=== PATIENT | female | born 1930 | race American Indian/Alaskan Native ===

== ENCOUNTER 2021-01-02 08:31 | Emergency (ER) | payer MEDICARE ==
[2021-01-02 08:56] VITALS: BP 115/68
--- NOTE | 2021-01-02 09:18 | Emergency Department Report ---
HPI - General Chief Complaint: Fall Time Seen by Provider: 01/02/21 09:04 - [facility] HPI: [place] 27 The patient is a 89-year-old female present with chief complaint of fall. The patient was sent from [facility] after an unwitnessed ground-level fall. The patient states she remembers falling. Patient denies pain of any type ED Past Medical Hx - Past Medical History Previous Medical History?: Yes Additional medical history: dementia - Surgical History Past Surgical History?: No - Family History Family history: no significant - Social History Smoking Status: Unknown if ever smoked Substance Use Type: None ED Review of Systems ROS: Stated complaint: ARM PAIN/FALL Other details as noted in HPI Constitutional: no symptoms reported Eyes: denies: eye pain ENT: denies: throat pain Respiratory: no symptoms reported Cardiovascular: denies: chest pain Endocrine: no symptoms reported Gastrointestinal: denies: abdominal pain Genitourinary: denies: dysuria Musculoskeletal: denies: back pain Neurological: denies: headache Physical Exam - Physical Exam Vital Signs: Vital Signs 01/02/21 08:40 Temperature 97.7 F Pulse Rate 84 Respiratory 16 Rate Blood Pressure 115/68 O2 Sat by Pulse 97 Oximetry Physical Exam: GENERAL: The patient is well-developed well-nourished female lying on stretcher not appearing to be in acute distress. [] HEENT: Normocephalic. Atraumatic. Extraocular motions are intact. Patient has moist mucous membranes. NECK: Supple. No axial step-offs. CHEST/LUNGS: Clear to auscultation. There is no respiratory distress noted. HEART/CARDIOVASCULAR: Regular. There is no tachycardia. There is no gallop rub or murmur. ABDOMEN: Abdomen is soft, nontender. Patient has normal bowel sounds. There is no abdominal distention. SKIN: There is no rash. There is no edema. There is no diaphoresis. NEURO: The patient is awake and alert. The patient is cooperative. The patient has no focal neurologic deficits. The patient has normal speech. Cranial nerves II through XII grossly intact. MUSCULOSKELETAL: The patient is able to flex both lower extremities at the knees and hips without difficulty. ED Course Vital Signs 01/02/21 08:40 Temperature 97.7 F Pulse Rate 84 Respiratory 16 Rate Blood Pressure 115/68 O2 Sat by Pulse 97 Oximetry ED Medical Decision Making - Radiology Data Radiology results: report reviewed (CT head, CT cervical spine), image reviewed (CT head, CT cervical spine) [facility] [address] [address] [place] [address] Cat Scan Report Signed Patient: FRANCISCO DÍAZ MR#: [id number] 71 : 1930 Acct:[id number] Age/Sex: 89 / F ADM Date: 01/02/21 Loc: ED Attending Dr: Ordering Physician: DEJUAN RAMOS MD Date of Service: 01/02/21 Procedure(s): CT head/brain wo con Accession Number(s): [id number] cc: DEJUAN RAMOS MD CT cervical spine wo con, CT head/brain wo con INDICATION: Fall. TECHNIQUE: CT head and cervical spine without contrast. All CT scans at this location are performed using CT dose reduction for ALARA by means of automated exposure control. COMPARISON: None. FINDINGS: HEAD: Intracranial: Mariee-white matter differentiation is maintained. No intracranial hemorrhage. No extra axial collection.. No hydrocephalus. No herniation. Sinuses: Minimal mucosal thickening seen within the left maxillary sinus and left ethmoid air cells. Overall the paranasal sinuses and mastoid air cells are centrally clear.. Orbits: Globes are intact Calvarium: No acute fracture. CERVICAL: Alignment: 2 mm degenerative retrolisthesis of C3 on C4. No traumatic listhesis. Vertebrae: No fracture. Vertebral body heights are preserved. C1 and C2 are congruent. Atlantooccipital joint is maintained. Spondylolysis: Diffuse spondylosis. There is significant lateral atlantoaxial degenerative changes resulting in moderate spinal canal stenosis. There is also moderate to spinal canal stenosis at C4- C5 and C5-C6. Multilevel facet arthropathy and high-grade osseous foraminal narrowing. Soft tissues: No prevertebral soft tissue thickening. Additional findings: No significant additional findings. IMPRESSION: 1. No acute intracranial abnormality. 2.No cervical spine fracture. Signer Name: Jarocho Ascencio MD Signed: 01/02/2021 9:53 AM Workstation Name: [id number] Transcribed By: SUNIL Dictated By: Jarocho Ascencio MD Electronically Authenticated By: Jarocho Ascencio MD Signed Date/Time: 01/02/21952 DD/ 9 TD/TT: Print Cancel [facility] [address] [address] [place] [address] Cat Scan Report Signed Patient: FRANCISCO DÍAZ MR#: [id number] [birth year] : 1930 Acct:[id number] Age/Sex: 89 / F ADM Date: 01/02/21 Loc: ED Attending Dr: Ordering Physician: DEJUAN RAMOS MD Date of Service: 01/02/21 Procedure(s): CT cervical spine wo con Accession Number(s): [id number] cc: DEJUAN RAMOS MD CT cervical spine wo con, CT head/brain wo con INDICATION: Fall. TECHNIQUE: CT head and cervical spine without contrast. All CT scans at this location are performed using CT dose reduction for ALARA by means of automated exposure control. COMPARISON: None. FINDINGS: HEAD: Intracranial: Mariee-white matter differentiation is maintained. No intracranial hemorrhage. No extra axial collection.. No hydrocephalus. No herniation. Sinuses: Minimal mucosal thickening seen within the left maxillary sinus and left ethmoid air cells. Overall the paranasal sinuses and mastoid air cells are centrally clear.. Orbits: Globes are intact Calvarium: No acute fracture. CERVICAL: Alignment: 2 mm degenerative retrolisthesis of C3 on C4. No traumatic listhesis. Vertebrae: No fracture. Vertebral body heights are preserved. C1 and C2 are congruent. Atlantooccipital joint is maintained. Spondylolysis: Diffuse spondylosis. There is significant lateral atlantoaxial degenerative changes resulting in moderate s morelia canal stenosis. There is also moderate to spinal canal stenosis at C4- C5 and C5-C6. Multilevel facet arthropathy and high-grade osseous foraminal narrowing. Soft tissues: No prevertebral soft tissue thickening. Additional findings: No significant additional findings. IMPRESSION: 1. No acute intracranial abnormality. 2.No cervical spine fracture. Signer Name: Jarocho Ascencio MD Signed: 01/02/2021 9:53 AM Workstation Name: [id number] Transcribed By: SUNIL Dictated By: Jarocho Ascencio MD Electronically Authenticated By: Jarocho Ascencio MD Signed Date/Time: 01/02/21952 DD/ 9 TD/TT: - Differential Diagnosis Close head injury, cervical fracture, intracranial hemorrhage Critical care attestation.: If time is entered above; I have spent that time in minutes in the direct care of this critically ill patient, excluding procedure time. ED Disposition Clinical Impression: Fall Disposition: DC/TX-70 ANOTHER TYPE HLTHCARE Is pt being admited?: No Does the pt Need Aspirin: No Condition: Stable Instructions: Fall Prevention in the Home, Adult, Fall Prevention in Hospitals, Adult Additional Instructions: Return to the emergency department should you develop worsening symptoms, inability to tolerate food or liquids, high fever or any other concerns Referrals: MAXI LOPEZ MD [Other] - 3-5 Days Time of Disposition: 10:34
--- NOTE | 2021-01-02 09:58 | Cat Scan Report ---
CT cervical spine wo con, CT head/brain wo con INDICATION: Fall. TECHNIQUE: CT head and cervical spine without contrast. All CT scans at this location are performed u sing CT dose reduction for ALARA by means of automated exposure control. COMPARISON: None. FINDINGS: HEAD: Intracranial: Mariee-white matter differentiation is maintained. No intracranial hemorrhage. No extra a xial collection.. No hydrocephalus. No herniation. Sinuses: Minimal mucosal thickening seen within the left maxillary sinus and left ethmoid air cells. Overall the paranasal sinuses and mastoid air cells are centrally clear.. Orbits: Globes are intact Calvarium: No acute fracture. CERVICAL: Alignment: 2 mm degenerative retrolisthesis of C3 on C4. No traumatic listhesis. Vertebrae: No fracture. Vertebral body heights are preserved. C1 and C2 are congruent. Atlantooccipi bhavya joint is maintained. Spondylolysis: Diffuse spondylosis. There is significant lateral atlantoaxial degenerative changes re sulting in moderate spinal canal stenosis. There is also moderate to spinal canal stenosis at C4-C5 a nd C5-C6. Multilevel facet arthropathy and high-grade osseous foraminal narrowing. Soft tissues: No prevertebral soft tissue thickening. Additional findings: No significant additional findings. IMPRESSION: 1. No acute intracranial abnormality. 2.No cervical spine fracture. Signer Name: Jarocho Ascencio MD Signed: 01/02/2021 9:53 AM Workstation Name: [id number]
== END 2021-01-02 12:48 | disposition other institution (70) ==
LOC: ED 08:31
DX: F03.90 Unspecified dementia, unspecified severity, without behavioral disturbance, psychotic disturbance, mood disturbance, and anxiety (principal); W18.39XA Other fall on same level, initial encounter; Y93.89 Activity, other specified; Y92.89 Other specified places as the place of occurrence of the external cause; Y99.8 Other external cause status
CPT/HCPCS: 70450; 72125; 99284; 99285

== ENCOUNTER 2021-01-13 00:37 | Emergency (ER) | payer MEDICARE ==
--- NOTE | 2021-01-13 02:05 | Emergency Department Report ---
HPI - General Chief Complaint: Fall Time Seen by Provider: 01/13/21 01:11 - HPI HPI: This is an 89-year-old -Algerian female presents to the emergency department via EMS from her fdc facility with a complaint of an unwitnessed fall. Patient has a history of dementia and is a poor historian. She presents with a small cut above her left eye. She denies hitting her head. The patient was here for an unwitnessed fall a few weeks ago. It does not appear that the patient was given anything or took anything for her symptoms prior to presentation. ED Past Medical Hx - Past Medical History Previous Medical History?: Yes Hx Kidney Stones: Yes Hx Dementia: Yes Additional medical history: dementia - Surgical History Past Surgical History?: No - Social History Smoking Status: Never Smoker Substance Use Type: None ED Review of Systems ROS: Stated complaint: FALL Other details as noted in HPI Comment: Unobtainable due to pts medical conditions Physical Exam - Physical Exam Vital Signs: Vital Signs 01/13/21 00:57 Temperature 98.0 F Pulse Rate 59 L Respiratory 16 Rate Blood Pressure 126/65 O2 Sat by Pulse 100 Oximetry Physical Exam: GENERAL: The patient is well-developed well-nourished. HENT: Normocephalic. Patient has moist mucous membranes. EYES: Extraocular motions are intact. Pupils equal reactive to light bilaterally. NECK: Supple. Trachea is midline. CHEST/LUNGS: Clear to auscultation. There is no respiratory distress noted. HEART/CARDIOVASCULAR: Regular. There is no tachycardia. There is no murmur. ABDOMEN: Abdomen is soft, nontender. Patient has normal bowel sounds. There is no abdominal distention. SKIN: Skin is warm and dry. There is a small abrasion or superficial laceration to the left lateral eyebrow. NEURO: The patient is awake, alert, and cooperative, but confused. AAO x1 to person but not place or time. Normal speech. MUSCULOSKELETAL: There is no tenderness or deformity. BACK: No midline thoracic or lumbar tenderness to palpation. ED Course Vital Signs 01/13/21 00:57 Temperature 98.0 F Pulse Rate 59 L Respiratory 16 Rate Blood Pressure 126/65 O2 Sat by Pulse 100 Oximetry ED Medical Decision Making - Radiology Data Radiology results: report reviewed, image reviewed interpreted by me: Chest x-ray does not show any acute process. There are no pleural effusions, obvious pneumonia and there is no pneumothorax. No significant cardiomegaly. No widened mediastinum. No obvious rib fractures. X-ray of the thoracic and lumbar spine do not show any fracture, subluxation, or any acute process. X-ray of the pelvis does not show any fracture, dislocation, or any acute process. CT imaging of the cervical spine was performed in the axial, sagittal, and coronal projections and bone algorithm in axial projection in the soft tissue algorithm. All CT scans at this location are performed using CT dose reduction for ALARA by means of automated exposure control. FINDINGS: Exam is compared to 01/02/2021 The ring of C1 is normal. The odontoid is normal. There is no evidence of an offset. There is no evidence of a fracture. However, degenerative changes are present with narrowing of the C1 odontoid junction. The spinal canal is well maintained. C2-C3: The spinal canal is well maintained. The neural foramina are normal. The vertebral bodies are normal. The posterior elements are intact. There is no evidence of a fracture. C3-C4: Marked intervertebral disc space narrowing is present with anterior and posterior osteophytes. The spinal canal is well maintained. The neural foramina are normal. The vertebral bodies are normal. The posterior elements are intact. There is no evidence of a fracture.. C4-C5: Marked intervertebral disc space narrowing is present with anterior and posterior osteophytes. Moderate spinal stenosis is present. The neural foramina is markedly narrowed on the left The vertebral bodies are normal. The posterior elements are intact. There is no evidence of a fracture. C5-C6: Marked intervertebral disc space narrowing is present with anterior and posterior osteophytes. The Moderate spinal stenosis present. The neural foramina is markedly narrowed on the left The vertebral bodies are normal. The posterior elements are intact. There is no evidence of a fracture. C6-C7: Marked intervertebral disc space narrowing is present with anterior and posterior osteophytes. The spinal canal is well maintained. The neural foramina are normal. The vertebral bodies are normal. The posterior elements are intact. There is no evidence of a fracture. C7-T1: The spinal canal is well maintained. The neural foramina are normal. The vertebral bodies are normal. The posterior elements are intact. There is no evidence of a fracture. IMPRESSION: No acute traumatic abnormality. Degenerative changes as noted. CT MAXILLOFACIAL WITHOUT CONTRAST INDICATION / CLINICAL INFORMATION: Trauma, LEFT sided orbital laceration.. TECHNIQUE: All CT scans at this location are performed using CT dose reduction for ALARA by means of automated exposure control. COMPARISON: None available. FINDINGS: FACIAL BONES: No fracture or other significant abnormality. PARANASAL SINUSES: No inflammatory changes present left frontal left ethmoid and left maxillary sinuses ORBITS: No significant abnormality. SOFT TISSUES: No significant abnormality. VISUALIZED INTRACRANIAL STRUCTURES: No significant abnormality. ADDITIONAL FINDINGS: None. IMPRESSION: 1. Inflammatory changes left frontal left ethmoid and left maxillary sinus CT HEAD WITHOUT CONTRAST HISTORY: Trauma, LEFT sided orbital laceration. COMPARISON: 01/02/2021 CT TECHNIQUE: CT imaging of the head was performed in the axial, sagittal, and coronal projections and bone algorithm in axial projection in the soft tissue algorithm. All CT scans at this location are performed using CT dose reduction for ALARA by means of automated exposure control. CONTRAST: None. FINDINGS: Cerebral and Cerebellar Hemispheres: Moderate diffuse cerebral atrophy. 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 No evidence of mass or mass effect. No midline shift. No acute hemorrhage. No acute cortical infarction. No extra-axial fluid collection. Ventricles: Normal in size and configuration for age. Osseous Structures: No significant abnormality. Visualized Paranasal Sinuses: Mucosal thickening left ethmoid left maxillary sinuses Additional Findings: None IMPRESSION: 1. No acute intracranial abnormality. Normal changes compared to previous exam - Medical Decision Making This patient presents to the emergency department from her fdc facility after an alleged fall. The patient has dementia and there is no one else with her for collateral information. It is unknown whether this was a witnessed versus unwitnessed fall. Given these facts, the patient had a CT scan of the head, cervical spine, and facial bones that did not show any acute processes. She had x-rays done of the chest, pelvis, thoracic and lumbar spine, that also did not show any acute process. Vital signs have been reassuring throughout her ED course thus far. She will be discharged back to her nursing facility with instructions to follow-up with the primary care physician. Critical Care Time: No Critical care attestation.: If time is entered above; I have spent that time in minutes in the direct care of this critically ill patient, excluding procedure time. ED Disposition Clinical Impression: Fall Qualifiers: Encounter type: initial encounter Qualified Code(s): W19.XXXA - Unspecified fall, initial encounter Facial abrasion Qualifiers: Encounter type: initial encounter Qualified Code(s): S00.81XA - Abrasion of other part of head, initial encounter Dementia Qualifiers: Dementia type: unspecified type Dementia behavioral disturbance: without behavioral disturbance Qualified Code(s): F03.90 - Unspecified dementia without behavioral disturbance Head injury Qualifiers: Encounter type: initial encounter Qualified Code(s): S09.90XA - Unspecified injury of head, initial encounter Disposition: TO HOME OR SELFCARE Is pt being admited?: No Condition: Stable Instructions: Fall Prevention in the Home, Adult, [id number], Head Injury, Adult, Abrasion, [id number] Additional Instructions: Please follow-up with the primary care physician in the next few days. Clean the area of the facial abrasion/laceration with soap and water and then keep it dry. Look out for signs/symptoms of infection such as increased pain, increased swelling, surrounding redness, development of fever, or discharge of pus. Return to the emergency department with any worsening of your symptoms, new or concerning symptoms not addressed during this current emergency department visit, or with any acute distress. Referrals: PRIMARY CARE, [Primary Care Provider] - 2-3 Days Time of Disposition: 03:16
--- NOTE | 2021-01-13 02:57 | Cat Scan Report ---
CT HEAD WITHOUT CONTRAST HISTORY: Trauma, LEFT sided orbital laceration. COMPARISON: 01/02/2021 CT TECHNIQUE: CT imaging of the head was performed in the axial, sagittal, and coronal projections and bone algori thm in axial projection in the soft tissue algorithm. All CT scans at this location are performed using CT dose reduction for ALARA by means of automated e xposure control. CONTRAST: None. FINDINGS: Cerebral and Cerebellar Hemispheres: Moderate diffuse cerebral atrophy. Moderate deep white matter di sease consistent with microangiopathy. No evidence of mass or mass effect. No midline shift. No acu te hemorrhage. No acute cortical infarction. No extra-axial fluid collection. Ventricles: Normal in size and configuration for age. Osseous Structures: No significant abnormality. Visualized Paranasal Sinuses: Mucosal thickening left ethmoid left maxillary sinuses Additional Findings: None IMPRESSION: 1. No acute intracranial abnormality. Normal changes compared to previous exam NOTE: Acute infarct may not be visible by noncontrast CT. Signer Name: James Bah MD Signed: 01/13/2021 2:52 AM Workstation Name: [id number]
--- NOTE | 2021-01-13 02:58 | Cat Scan Report ---
CT MAXILLOFACIAL WITHOUT CONTRAST INDICATION / CLINICAL INFORMATION: Trauma, LEFT sided orbital laceration.. TECHNIQUE: All CT scans at this location are performed using CT dose reduction for ALARA by means of automated e xposure control. COMPARISON: None available. FINDINGS: FACIAL BONES: No fracture or other significant abnormality. PARANASAL SINUSES: No inflammatory changes present left frontal left ethmoid and left maxillary sinus es ORBITS: No significant abnormality. SOFT TISSUES: No significant abnormality. VISUALIZED INTRACRANIAL STRUCTURES: No significant abnormality. ADDITIONAL FINDINGS: None. IMPRESSION: 1. Inflammatory changes left frontal left ethmoid and left maxillary sinus Signer Name: James Bah MD Signed: 01/13/2021 2:54 AM Workstation Name: [id number]
--- NOTE | 2021-01-13 03:04 | Cat Scan Report ---
CLINICAL DATA: Trauma, LEFT sided orbital laceration. TECHNICAL DATA: CT imaging of the cervical spine was performed in the axial, sagittal, and coronal projections and milad ne algorithm in axial projection in the soft tissue algorithm. All CT scans at this location are performed using CT dose reduction for ALARA by means of automated e xposure control. FINDINGS: Exam is compared to 01/02/2021 The ring of C1 is normal. The odontoid is normal. There is no evidence of an offset. There is no e vidence of a fracture. However, degenerative changes are present with narrowing of the C1 odontoid j unction. The spinal canal is well maintained. C2-C3: The spinal canal is well maintained. The neural foramina are normal. The vertebral bodies a re normal. The posterior elements are intact. There is no evidence of a fracture. C3-C4: Marked intervertebral disc space narrowing is present with anterior and posterior osteophytes . The spinal canal is well maintained. The neural foramina are normal. The vertebral bodies are no rmal. The posterior elements are intact. There is no evidence of a fracture.. C4-C5: Marked intervertebral disc space narrowing is present with anterior and posterior osteophytes . Moderate spinal stenosis is present. The neural foramina is markedly narrowed on the left The vert ebral bodies are normal. The posterior elements are intact. There is no evidence of a fracture. C5-C6: Marked intervertebral disc space narrowing is present with anterior and posterior osteophytes . The Moderate spinal stenosis present. The neural foramina is markedly narrowed on the left The vertebral bodies are normal. The posterior elements are intact. There is no evidence of a fract ure. C6-C7: Marked intervertebral disc space narrowing is present with anterior and posterior osteophytes . The spinal canal is well maintained. The neural foramina are normal. The vertebral bodies are no rmal. The posterior elements are intact. There is no evidence of a fracture. C7-T1: The spinal canal is well maintained. The neural foramina are normal. The vertebral bodies a re normal. The posterior elements are intact. There is no evidence of a fracture. IMPRESSION: No acute traumatic abnormality. Degenerative changes as noted. . Signer Name: James Bah MD Signed: 01/13/2021 3:00 AM Workstation Name: [id number]
[2021-01-13 07:49] VITALS: BP 128/74
--- NOTE | 2021-01-13 08:04 | XRay Report ---
CLINICAL DATA: right arm pain TECHNICAL DATA: Single view FINDINGS: There fracture midshaft of the humerus. Right shoulder arthroplasty in place IMPRESSION: Fracture Signer Name: James Bah MD Signed: 01/13/2021 6:06 AM Workstation Name: [id number]
--- NOTE | 2021-01-13 08:04 | XRay Report ---
. PELVIS HISTORY: COMPARISON: None. TECHNIQUE: AP radiograph(s) of the pelvis obtained. FINDINGS: Bones: No fracture or dislocation. Joint spaces: Maintained. Soft Tissues: No significant abnormality. Additional findings: None. IMPRESSION: 1. No acute abnormality. Signer Name: James Bah MD Signed: 01/13/2021 2:33 AM Workstation Name: [facility] [id number]
--- NOTE | 2021-01-13 08:05 | XRay Report ---
CHEST 1 VIEW INDICATION: Trauma COMPARISON: FINDINGS: SUPPORT DEVICES: None. HEART / MEDIASTINUM: No significant abnormality. LUNGS / PLEURA: No significant pulmonary or pleural abnormality. No pneumothorax. ADDITIONAL FINDINGS: IMPRESSION: 1. No acute cardiopulmonary disease Signer Name: James Bah MD Signed: 01/13/2021 2:32 AM Workstation Name: [id number]
--- NOTE | 2021-01-13 08:05 | XRay Report ---
CLINICAL DATA: Trauma TECHNICAL DATA: AP and lateral views lumbar spine. FINDINGS: Marked scoliosis of the lumbar spine. Osteopenia is present. Marked degenerative changes of the facet s IMPRESSION: Very limited imaging which is nondiagnostic Signer Name: James Bah MD Signed: 01/13/2021 2:34 AM Workstation Name: [id number]
--- NOTE | 2021-01-13 08:06 | XRay Report ---
CLINICAL DATA: Trauma TECHNICAL DATA: AP and lateral views were obtained of the thoracic spine. FINDINGS: The thoracic vertebrae are osteopenic. Poor visualization of the lateral view. IMPRESSION: Nondiagnostic thoracic spine Signer Name: James Bah MD Signed: 01/13/2021 2:32 AM Workstation Name: [id number]
== END 2021-01-13 08:15 | disposition home or self-care (01) ==
LOC: ED 00:37
DX: S09.90XA Unspecified injury of head, initial encounter (principal); S42.301A Unspecified fracture of shaft of humerus, right arm, initial encounter for closed fracture; F03.90 Unspecified dementia, unspecified severity, without behavioral disturbance, psychotic disturbance, mood disturbance, and anxiety; W19.XXXA Unspecified fall, initial encounter; Y93.89 Activity, other specified; Y92.89 Other specified places as the place of occurrence of the external cause; Y99.8 Other external cause status
CPT/HCPCS: 70450; 70486; 71045; 72070; 72100; 72125; 72170

== ENCOUNTER 2021-01-17 02:15 | Emergency (ER) | payer MEDICARE ==
--- NOTE | 2021-01-17 02:52 | Emergency Department Report ---
ED Extremity Problem HPI - General Stated complaint: SWOLLEN RIGHT ARM Time Seen by Provider: 01/17/21 02:21 Source: EMS - History of Present Illness Initial comments: 89-year-old female, history of dementia, multiple falls, presents to ED from [facility] for evaluation of right arm swelling. Patient was diagnosed with a midshaft humerus fracture 4 days ago here in our ED. Coaptation splint was placed at that time. Advised to follow-up with Ortho. Patient sent to ED tonight because of swelling in ED right hand and forearm. Patient has history of dementia. She denies any pain to the right arm. MD Complaint: extremity swelling -: unknown Location: right, upper extremity Quality: other (Painless) Consistency: constant - Related Data Allergies Allergy/AdvReac Type Severity Reaction Status Date / Time No Known Allergies Allergy Verified 01/02/21 08:40 ED Review of Systems ROS: Stated complaint: SWOLLEN RIGHT ARM Other details as noted in HPI Comment: All other systems reviewed and negative Musculoskeletal: as per HPI ED Past Medical Hx - Past Medical History Hx Kidney Stones: Yes Hx Dementia: Yes Additional medical history: dementia - Social History Smoking Status: Never Smoker Substance Use Type: None ED Physical Exam - General General appearance: alert, in no apparent distress - Head Head exam: Present: atraumatic, normocephalic - Eye Eye exam: Present: normal appearance, EOMI - ENT ENT exam: Present: mucous membranes moist - Neck Neck exam: Present: normal inspection - Respiratory Respiratory exam: Present: normal lung sounds bilaterally. Absent: respiratory distress - Cardiovascular Cardiovascular Exam: Present: regular rate, normal rhythm - GI/Abdominal GI/Abdominal exam: Absent: distended - Extremities Exam Extremities exam: Present: other (Coaptation splint removed; significant dependent pitting edema to the right hand and forearm; no swelling in the right upper arm; arm is nontender; sensation intact; radial pulse palpable; arm is warm; cap refill normal) - Neurological Exam Neurological exam: Present: alert. Absent: oriented X3 (oriented to self) - Psychiatric Psychiatric exam: Present: normal affect, normal mood - Skin Skin exam: Present: warm, dry, intact, normal color ED Medical Decision Making - Medical Decision Making Patient arrived in coaptation splint and sling, however arm is not appropriately positioned in the sling. Arm is actually hanging down out of the sling, which has resulted in dependent edema of the right hand and forearm. Splint was removed and arm examined. Patient has no edema or swelling in the right upper arm, in the area of the fracture. Arm is neurovascularly intact. Splint was placed back on patient. She will be [facility] back to [facility] living with instructions to make sure the patient's arm is correctly positioned in the sling and to elevate her arm as much as possible. Outpatient follow-up with orthopedics as advised. Critical care attestation.: If time is entered above; I have spent that time in minutes in the direct care of this critically ill patient, excluding procedure time. ED Disposition Clinical Impression: Dependent edema Disposition: DC-01 TO HOME OR SELFCARE Is pt being admited?: No Condition: Stable Instructions: Edema, [id number] Additional Instructions: Keep arm correctly positioned in sling, not pointing downward. Elevate arm as much as possible. Follow-up with orthopedic surgeon. Referrals: ERNESTINA BHAKTA MD [Staff Physician] - [facility] Time of Disposition: 03:09
[2021-01-17 03:27] VITALS: BP 117/58
== END 2021-01-17 07:45 | disposition home or self-care (01) ==
LOC: ED 02:15
DX: R60.9 Edema, unspecified (principal); F03.90 Unspecified dementia, unspecified severity, without behavioral disturbance, psychotic disturbance, mood disturbance, and anxiety